=== PATIENT | male | born 1995 | race Caucasian/White ===

== ENCOUNTER 2017-06-12 09:48 | Emergency (ER) | payer MEDICAID, OTHER ==
[~2017-06-12] VITALS: Ht 177.8 cm; Wt 68.0 kg
[2017-06-12] MEDS ORDERED: SODIUM CHLORIDE 0.9% 1,000 ML IV ONE (10:20)
[2017-06-12] MEDS ORDERED: MORPHINE SULFATE 4 MG/ML CPJ (NOT FOR IM USE) IV ONE (10:30)
[2017-06-12] MEDS ORDERED: ONDANSETRON HCL 4MG/2ML VIAL IV ONE (10:30)
[2017-06-12] MEDS ORDERED: MORPHINE SULFATE 10 MG/ML CPJ IV ONE (11:01)
[2017-06-12 11:06] LABS: INR 1.2; PROTHROMBIN TIME 12.6 sec (9.4-11.6)
[2017-06-12 11:08] LABS: BASOPHILS % 0.9 % (0.0-2.0); EOSINOPHILS % 2.9 % (0.0-5.0); HEMATOCRIT. 46.6 % (42.0-52.0); HEMOGLOBIN. 16.6 g/dL (14.0-18.0); LYMPHOCYTES % 38.9 % (20.0-50.0); MEAN CORPUSCULAR VOLUME 87.3 fL (80.0-94.0); MEAN PLATELET VOLUME 10.5 fl (7.4-10.4); MONOCYTES % 8.8 % (2.0-8.0); NEUTROPHILS % 48.5 % (40.0-76.0); PLATELET 254 x1000/uL (130-400); RED BLOOD CELL COUNT 5.34 mill/uL (4.7-6.1); RED CELL DISTRIBUTION WIDTH 12.7 % (11.6-14.6)
[2017-06-12 11:14] LABS: CARBON DIOXIDE 21 mEq/L (21-32); CHLORIDE 111 mEq/L (98-107); CREATINE KINASE 80 IU/L (39-308); TROPONIN I < 0.02 ng/mL (0.00-0.04)
[2017-06-12 11:15] LABS: CREATINE KINASE MB FRACTION 0.9 ng/mL (0.5-3.6)
[2017-06-12 12:12] LABS: *AMPHETAMINES SCREEN URINE NEGATIVE (NEGATIVE); *BARBITURATES SCREEN URINE NEGATIVE (NEGATIVE); *BENZODIAZEPINES SCREEN URINE NEGATIVE (NEGATIVE); *COCAINE SCREEN URINE NEGATIVE (NEGATIVE); CANNABINOID URINE SCREEN PRESUMTIVE POSITIVE (NEGATIVE); METHADONE URINE SCREEN NEGATIVE (NEGATIVE); OPIATES URINE SCREEN NEGATIVE (NEGATIVE); PHENCYCLIDINE URINE SCREEN NEGATIVE (NEGATIVE)
[2017-06-12 12:47] VITALS: BP 114/68
== END 2017-06-12 12:49 | disposition home or self-care (01) ==
LOC: ER 09:48
DX: R07.9 Chest pain, unspecified (principal); F12.10 Cannabis abuse, uncomplicated; F17.200 Nicotine dependence, unspecified, uncomplicated; Y09 Assault by unspecified means
CPT/HCPCS: 36415; 71010; 80053; 80305; 82550; 82553; 83690; 83880; 84443; 84484; 85025; 85610; 85730; 93005; 96361; 96374; 96375; 99285; J2270; J2405; J7030; Z7610

== ENCOUNTER 2018-04-18 13:28 | Emergency (ER) | payer MEDICAID ==
[~2018-04-18] VITALS: Ht 175.3 cm; Wt 145.0 kg
[2018-04-18 15:34] VITALS: BP 129/72
== END 2018-04-18 15:35 | disposition home or self-care (01) ==
LOC: ER 13:28
DX: S02.652A Fracture of angle of left mandible, initial encounter for closed fracture (principal); F12.10 Cannabis abuse, uncomplicated; F17.200 Nicotine dependence, unspecified, uncomplicated; Y04.0XXA Assault by unarmed brawl or fight, initial encounter; Y93.89 Activity, other specified; Y92.018 Other place in single-family (private) house as the place of occurrence of the external cause
CPT/HCPCS: 70486; 99284

== ENCOUNTER 2020-03-19 02:28 | Emergency (ER) | payer MEDICAID ==
[~2020-03-19] VITALS: Ht 167.6 cm; Wt 75.0 kg
[2020-03-19 03:14] VITALS: BP 123/83
[2020-03-19] MEDS ORDERED: IBUPROFEN 800MG TABLET PO ONE (03:15)
== END 2020-03-19 04:06 | disposition home or self-care (01) ==
LOC: ER 02:28
DX: S90.31XA Contusion of right foot, initial encounter (principal); S80.11XA Contusion of right lower leg, initial encounter; W18.39XA Other fall on same level, initial encounter; Y93.39 Activity, other involving climbing, rappelling and jumping off; Y92.89 Other specified places as the place of occurrence of the external cause; Y99.8 Other external cause status
CPT/HCPCS: 73590; 73630; 99284

== ENCOUNTER 2020-03-26 21:04 | Emergency (ER) | payer MEDICAID ==
[~2020-03-26] VITALS: Ht 165.1 cm; Wt 73.0 kg
[2020-03-26 21:13] VITALS: BP 127/76
== END 2020-03-26 23:10 | disposition home or self-care (01) ==
LOC: ER 21:04
DX: S92.001A Unspecified fracture of right calcaneus, initial encounter for closed fracture (principal); X58.XXXA Exposure to other specified factors, initial encounter; Y93.89 Activity, other specified; Y92.89 Other specified places as the place of occurrence of the external cause; Y99.8 Other external cause status; F12.10 Cannabis abuse, uncomplicated
CPT/HCPCS: 29505; 99283